=== PATIENT | female | born 2005 | race Caucasian/White ===

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

== ENCOUNTER → 2024-04-26 | Outpatient (CLI) | payer BC ==
[2024-04-26 14:17] LABS: Potassium 4.9 mmol/L (3.5-5.5)
[2024-04-26 15:53] LABS: % Iron Saturation 9.28 (12.00-45.00)
== END | disposition home or self-care (01) ==
LOC: LABWHC1 09:56
PROVIDERS: ATTEND Dermatology MOHS-Micrographic Surgery
DX: Z11.1 Encounter for screening for respiratory tuberculosis (principal); E55.9 Vitamin D deficiency, unspecified; L70.0 Acne vulgaris; D64.9 Anemia, unspecified; Z79.899 Other long term (current) drug therapy
CPT/HCPCS: 36415; 82306; 82652; 83540; 83550; 84132; 86480